=== PATIENT | female | born 1940 | race Two or more races ===

== ENCOUNTER 2019-07-05 19:25 | Emergency (ER) | payer SELFPAY ==
--- NOTE | 2019-07-05 21:44 | EDM.PDOC ---
ED HPI GENERAL MEDICAL PROBLEM - General Chief Complaint: General Stated Complaint: HIGH ANXIETY Time Seen by Provider: 07/05/19 21:41 Source of Information: Reports: Family History Limitations: Reports: Language Barrier - History of Present Illness INITIAL COMMENTS - FREE TEXT/NARRATIVE: This lady was brought in by family. She is from [place] and speaks only Pashto. She has stress-induced asthma and really has a lot of difficulty on the flight coming here. She is due to fly back in about 3 days. They're asking for some kind of a sedative. - Related Data Allergies Allergy/AdvReac Type Severity Reaction Status Date / Time ibuprofen Allergy Respiratory Verified 07/05/19 20:03 Depression Home Meds: Home Meds . 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: Musculoskeletal History: Reports: Osteoporosis Psychiatric History: Reports: Anxiety, Panic Attack Endocrine/Metabolic History: Reports: Hypothyroidism - Past Surgical History Head Surgeries/Procedures: Reports: None Cardiovascular Surgical History: Reports: None Respiratory Surgical History: Reports: None GI Surgical History: Reports: Appendectomy Female Surgical History: Reports: Hysterectomy Endocrine Surgical History: Reports: Thyroidectomy Musculoskeletal Surgical History: Reports: None, Other (See Below) Other Musculoskeletal Surgeries/Procedures:: right elbow Dermatological Surgical History: Reports: None Social & Family History - Tobacco Use Smoking Status *Q: Never Smoker Second Hand Smoke Exposure: No - Caffeine Use Caffeine Use: Reports: Coffee - Recreational Drug Use Recreational Drug Use: No ED ROS GENERAL - Review of Systems Review Of Systems: See Below ED EXAM, GENERAL - Physical Exam Exam: See Below Exam Limited By: No Limitations General Appearance: Alert, WD/WN, No Apparent Distress Eye Exam: Bilateral Eye: Normal Inspection Throat/Mouth: Normal Inspection Respiratory/Chest: Lungs Clear Cardiovascular: Regular Rate, Rhythm Neurological: Alert, CN II-XII Intact, Normal Cognition (Having a normal conversation and Pashto with her family) Psychiatric: Normal Affect, Normal Mood, Anxious (Seems slightly anxious) Skin Exam: Warm, Dry Course - Vital Signs Last Recorded V/S: Last Vital Signs Temp 36.9 C 07/05/19 20:15 Pulse 72 10/09/19 20:15 Resp 18 07/05/19 20:15 BP 185/99 H 07/05/19 20:15 Pulse Ox 93 L 07/05/19 20:15 Departure - Departure Time of Disposition: 21:43 Disposition: Home, Self-Care 01 Condition: Fair Clinical Impression: Acute anxiety - Discharge Information Referrals: PCP,None [Primary Care Provider] - Additional Instructions: She should take lorazepam 1 mg, one half or one tablet every 8 hours as needed for anxiety. This medication can cause sedation and impair driving or operating machinery
== END 2019-07-05 21:55 | disposition home or self-care (01) ==
LOC: JP.ED 19:25
DX: F41.9 Anxiety disorder, unspecified (principal); I10 Essential (primary) hypertension; Z88.8 Allergy status to other drugs, medicaments and biological substances
CPT/HCPCS: 99283